=== PATIENT | male | born 1990 | race Caucasian/White ===

== ENCOUNTER 2024-04-18 19:57 | Emergency (ER) | payer BC, SELFPAY ==
[2024-04-18 20:01] VITALS: BP 144/70
[2024-04-18] MEDS: KEFLEX 500 MG PO (22:13)
--- NOTE | 2024-04-18 23:26 | ED.SKININJ ---
HPI-Injury
General
Chief Complaint: Skin Problem
Source: patient
Exam Limitations: none
Time Seen by Provider: 04/18/24 20:18
Nursing documentation reviewed up to this point in time: agreed with
History of Present Illness-Injury
Is this injury a work related problem?: No
Is pt an associate of [facility]/[place]?: No
Initial Injury comments:
Patient to ED with complaint of fiberglass spinter to left palmar hand. States he was attempting to place a fiberglass stake in ground and a sliver embedded into his hand. Here for FB removal.
Past History
Past History
ED Past Medical History: None
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
Social History
Tobacco: Non-smoker
Alcohol: Occasional
Personal: Single
Living: alone
Employment: Employed
Family History
Family History: Other (Noncontributory)
Review of Systems
Review of Systems
Allergies reviewed?: Yes
All Other Systems: ROS reviewed and negative except as documented in HPI and ROS
Constitutional: Reports no symptoms
Musculoskeletal: Reports no symptoms
Skin: Reports other (FB left palmar hand)
Neurological: Reports no symptoms
Psychiatric: Reports no symptoms
Skin Exam
Foreign Body
Left Palmar Hand:
Foreign body is: deep
Foreign body can be visualized?: No
Phy Exam
General Physical Exam
General Presentation: well appearing and no apparent distress
General age: appears stated age
General Skin: warm and dry
General Habitus: normal
General Mental: alert
Musculoskeletal Exam
Musculoskeletal Exam: full ROM and neuro vasc intact
Skin Exam
Skin Exam: normal color, warm/dry and no rash
Psychiatric Exam
Psychiatric Exam: normal mood/affect
Course
Orders/Labs/Results
Orders:
Orders
04/18/24 21:07
Hand, Left 3 View [CR Hand - Left Min 3 Views] Urgent
Comment:
Reason For Exam: palmar FB
04/18/24 22:00
Hand, Left 3 View [CR Hand - Left Min 3 Views] Urgent
Comment:
Reason For Exam: post FB removal
04/18/24 22:09
Cephalexin Monohydrate [Keflex] 500 mg PO NOW STA
Vital Signs
Initial and Last Documented VS:
Initial Vital Signs
Temp Pulse Resp BP Pulse Ox
98.7 F 84 20 144/70 95
04/18/24 20:01 04/18/24 20:01 04/18/24 20:01 04/18/24 20:01 04/18/24 20:01
Last Documented Vital Signs
Temp Pulse Resp BP Pulse Ox
98.7 F 84 20 144/70 95
04/18/24 20:01 04/18/24 20:01 04/18/24 20:01 04/18/24 20:01 04/18/24 20:01
Procedures
Foreign Body Removal-Skin
Anesthesia: 1% lidocaine
Foreign body removed using: forceps and incision (1cm incision made with #11 blade. FB removed with forceps. Flushed with NSS. Cleansed with Betadine. Closed with 2 sutures of 5-0 prolene.)
Foreign body removed: completely
*Radiology
Radiology exam reviewed: radiology read reviewed
*Pulse Oximetry
Patient hypoxic: no
*Critical Care Note
Total Time (30-74mins, 75-104mins- exclusive of procedures): Not Applicable
ED Attending Note
-
Portions of this chart may have been created with voice recognition software.� Occasional wrong word or��sound alike� substitutions may have occurred due to the inherent limitations of voice recognition software.
Discharge Plan
Departure
Patient Disposition: Home (Routine Discharge)
Date of Disposition: 04/18/24
Time of Disposition: 22:10
Patient with high blood pressure during this ER visit?: No
Condition: Good
Covid-19: Not Applicable
Discharge Problem:
Foreign body in skin
Instructions: Wound Care (DC)
Prescriptions:
New
cephalexin 500 mg capsule
500 mg PO BID 7 Days Qty: 14 0RF
No Action
hydrocodone-acetaminophen 5 MG/500 MG tablet
1 tab PO .Q4-6HPRN PRN (Reason: PAIN) Qty: 15 0RF
amoxicillin-pot clavulanate 875 MG/125 MG tablet
1 tab PO BID Qty: 20 0RF
hydrocodone-acetaminophen 5 MG/500 MG tablet
1 tab PO .Q4-6HPRN PRN (Reason: PAIN) Qty: 20 0RF
cyclobenzaprine 10 MG tablet
10 mg PO TIDPRN PRN (Reason: muscle spasms) Qty: 30 0RF
hydrocodone-acetaminophen [Vicodin] 1 EACH tablet
1 ea PO R Q6HPRN PRN (Reason: moderate pain) Qty: 12 0RF
clotrimazole 1 % cream
1 applic topical BID 28 Days Qty: 30 1RF
Rx Instructions:
continue for 1 week after lesion has healed
Referrals:
Terry Mahmood DO [Family Provider] - (Sutures can be removed in 7-10 days)
Interventions
Interventions:
*Risk Screen - Suicide Last Done: 04/18/24 20:01
*General Assessment Last Done: 04/18/24 20:01
*Neglect/Abuse Screening Last Done: 04/18/24 20:01
ED- Fall Risk Assessment Last Done: 04/18/24 20:01
*ED COVID-19 Vaccine History Last Done: 04/18/24 20:01
*Nursing Disposition Last Done: 04/18/24 22:20
ED-Skin Assessment Last Done: 04/18/24 21:14
Discharge Date and Time
Discharge Date/Time: 04/18/24 22:21
Print Language: [id number]
== END 2024-04-18 22:21 | disposition home or self-care (01) ==
LOC: EMR 19:57
PROVIDERS: EMERGENCY PHYSICIAN Emergency Medicine; FAMILY PHYSICIAN Family Medicine
DX: S60.552A Superficial foreign body of left hand, initial encounter (principal); W45.8XXA Other foreign body or object entering through skin, initial encounter
CPT/HCPCS: 99283; 10120; 73130